=== PATIENT | female | born 1970 | race Caucasian/White ===

== ENCOUNTER 2016-02-20 09:58 | Day surgery (SDC) | payer OTHER ==
[~2016-02-20 09:58] MED LIST: LIDOCAINE 2% VISCOUS(20 MG/1 ML) - 15 ML UD CUP PO ONE; LIDOCAINE HCL/PF 2% (20 MG/ML) - 5 ML SYRINGE ONE; LIDOCAINE W/ SODIUM BICARB 0.5 ML SYR ONE; Lactated Ringers 1,000 ML PRIMARY IV ONE; MIDAZOLAM 5 MG/1 ML ONE; fentaNYL Inj 100 MCG/2 ML VIAL ONE
--- NOTE | 2016-02-20 11:01 | GEN.OPNOTE ---
EGD Operative Note Surgery Date: 02/20/16 Preoperative Diagnosis: Benign esophageal stricture Postoperative Diagnosis: Benign esophageal stricture Procedure: Esophagogastroduodenoscopy with dilation and biopsies Surgeon: Bob Lange MD Anesthesia Provider: Alexandru Quinn CRNA Anesthesia Type: MAC Indications: This is a patient has had 3 esophageal dilations for benign esophageal stricture. She's having difficulty swallowing again Findings: Esophagus: [employer] video EGD scope inserted in the posterior pharynx current epithelization to the esophagus. The esophagus appeared be normal. No masses tumors or ulcers. After I did the balloon dilation I took random biopsies rule out eosinophilic esophagitis. Patient had what appeared to be a benign Schatzki 's ring at the GE junction. I placed the balloon dilator across the stricture and dilated to 20 mm. GE Junction : GE junction proximal be 40 cm from the incisors Fundus : Scope right flexor on itself revealing a normal fundus Body : Body is of stomach within normal limits Prepyloric : Prepyloric area free from disease Small Intestine : First second third portion the duodenum within normal A lubricated flexible upper endoscope was inserted and passed through the esophagus and stomach into the duodenum.
[2016-02-20 14:10] VITALS: RESP 16; TEMP 97.1
== END 2016-02-20 11:50 | disposition home or self-care (01) ==
LOC: SDSC 09:58
PROVIDERS: ATTEND Surgery
DX: K22.2 Esophageal obstruction (principal)
CPT/HCPCS: 43239; 43249; J2704; J3010; J2001; J2250; J7120